=== PATIENT | male | born 1950 | race Caucasian/White ===

== ENCOUNTER 2018-09-03 08:57 | Outpatient (RCR) | payer MEDICARE, OTHER | END 2018-09-05 14:36 | LOC: OPPGERO 08:57 | DX: F39 Unspecified mood [affective] disorder (principal); F41.1 Generalized anxiety disorder; E55.9 Vitamin D deficiency, unspecified; Z79.899 Other long term (current) drug therapy ==

== ENCOUNTER 2018-09-08 09:18 | Outpatient (RCR) | payer MEDICARE, OTHER | END 2018-10-08 17:23 | LOC: OPPGERO 09:18 | DX: F39 Unspecified mood [affective] disorder (principal); F41.1 Generalized anxiety disorder; E55.9 Vitamin D deficiency, unspecified ==

== ENCOUNTER 2018-10-09 09:16 | Outpatient (RCR) | payer MEDICARE, OTHER | END 2018-11-07 12:55 | LOC: OPPGERO 09:16 | DX: F39 Unspecified mood [affective] disorder (principal); F41.1 Generalized anxiety disorder; E55.9 Vitamin D deficiency, unspecified ==

== ENCOUNTER 2018-11-09 16:34 | Outpatient (RCR) | payer MEDICARE, OTHER | END 2018-12-08 13:59 | disposition still patient (30) | LOC: OPPGERO 16:34 | DX: F39 Unspecified mood [affective] disorder (principal); F41.1 Generalized anxiety disorder ==

== ENCOUNTER 2018-12-09 11:10 | Outpatient (RCR) | payer MEDICARE, OTHER | END 2019-01-08 15:31 | disposition still patient (30) | LOC: OPPGERO 11:10 | DX: F39 Unspecified mood [affective] disorder (principal); F41.1 Generalized anxiety disorder; Z98.890 Other specified postprocedural states ==